=== PATIENT | male | born 1990 | race Caucasian/White ===

== ENCOUNTER 2020-07-30 08:15 | Observation (INO) | payer BC ==
[~2020-07-30] VITALS: Ht 188 cm; Wt 105.2 kg
[2020-07-30] VITALS (13 sets, daily range): BP systolic 108–132; BP diastolic 45–77; PULSE 45–80; TEMP 98.1–98.4
--- NOTE | 2020-07-30 10:30 | NUR ---
Patient admitted and completed 5 page. Patient wiped down abdomen with wipes, brushed teeth, and prepared for surgery. Antibiotics, green , and fluids were given. Patient taken down for surgery at 10:30.
[2020-07-30] MEDS ORDERED: ULTRAM 50MG TAB50 MG PO (15:29)
--- NOTE | 2020-07-30 18:15 | NUR ---
Patient back from procedure. He has 5 lap sites. Edges well approximated, open to air. Checked patient's gag reflex. Brought him water and jello. Patient has no complaints of pain or concerns. Patient's fiance is at bedside.
--- NOTE | 2020-07-30 19:13 | NUR ---
PT COMPLAINING OF RT ABDOMINAL PAIN 03/31. TRAMADOL 50MG PO GIVEN. HAS 5 ROBOTIC SITES, GLUED AND DRY. SL TO LEFT HAND WITHOUT REDNESS OR SWELLING. INDEPENDENT IN ROOM.
--- NOTE | 2020-07-30 20:15 | NUR ---
PT REPORTS MINIMAL PAIN RELIEF WITH TRAMADOL, DR AVALOS OKAYS TO REPEAT DOSE AT THIS TIME.
[2020-07-31] VITALS: BP 141/70; PULSE 68; TEMP 97.7
--- NOTE | 2020-07-31 00:23 | NUR ---
PT ASKING FOR PAIN MEDS, RATES RT SIDE ABD PAIN 03/31. MEDICATED WITH MORPHINE 2MG IVP AND TYLENOL 650MG PO AT THIS TIME.
[2020-07-31 04:00] VITALS: BP 131/60; PULSE 86; TEMP 98.5
--- NOTE | 2020-07-31 05:24 | NUR ---
DENIES NEED FOR PAIN MEDS AT THIS TIME.
--- NOTE | 2020-07-31 08:16 | NUR ---
Patient resting in bed. Tolerated breakfast well. He complained of some pain and was given ultram. Patient denies ultram helping with pain. Will reassess pain and call Dr if needed.
[2020-07-31 08:44] VITALS: BP 120/60; PULSE 55; TEMP 98.3
--- NOTE | 2020-07-31 09:01 | NUR ---
Patient said pain is tolerable at a 4 and he did not need any additional medication. Will continue to monitor.
[2020-07-31 11:54] VITALS: BP 116/56; PULSE 56; TEMP 97.7
--- NOTE | 2020-07-31 12:28 | NUR ---
rounded. Discharge instructions given. Patient & significant other verbalized understanding & Deny questions or concerns. We reviewed low fat diet, activity restrictions, incisions cares. Int brook. Ilan ambulated out with all belongings.
--- NOTE | 2020-07-31 13:24 | NUR ---
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
[2020-08-05 10:35] VITALS: BP 128/69; PULSE 73; TEMP 97.8
== END 2020-07-31 12:31 | disposition home or self-care (01) ==
LOC: SURG 08:15 → JCC 15:15
PROVIDERS: ADMIT Surgery
DX: K80.12 Calculus of gallbladder with acute and chronic cholecystitis without obstruction (principal)
CPT/HCPCS: C1769; G0378; G0379; J0690; J0696; J1100; J1170; J1885; J2270; J2405; J2704; J7120; Q9967